=== PATIENT | male | born 1960 | race Hispanic/Latino ===

== ENCOUNTER 2023-08-19 16:47 | Emergency (ER) | payer BC ==
[~2023-08-19] VITALS: Ht 170.2 cm; Wt 79.4 kg
[2023-08-19 17:54] LABS: BASOPHILS # (AUTO) 0.06 K/uL (0.00-0.20); BASOPHILS % (AUTO) 0.8 % (0.0-5.0); EOSINOPHILS # (AUTO) 0.32 K/uL (0.00-0.70); EOSINOPHILS % (AUTO) 4.4 % (0.0-8.0); HEMATOCRIT 39.6 % (42-54); IMMATURE GRANULOCYTE ABSOLUTE 0.02 K/uL (0-1); LYMPHOCYTES # (AUTO) 2.4 K/uL (1.0-4.8); LYMPHOCYTES % (AUTO) 33.2 % (21.0-51.0); MEAN CORPUSCULAR HEMOGLOBIN 30.8 pg (27.0-33.0); MEAN CORPUSCULAR HGB CONC 34.3 g/dL (32.0-36.0); MEAN CORPUSCULAR VOLUME 89.8 fL (79-99); MONOCYTES # (AUTO) 0.6 K/uL (0.1-1.0); MONOCYTES % (AUTO) 7.7 % (3.0-13.0); NEUTROPHILS # (AUTO) 3.9 K/uL (1.8-7.7); NEUTROPHILS % (AUTO) 53.6 % (40.0-77.0); PLATELET COUNT (AUTO) 163 K/uL (130-400); RED BLOOD CELL COUNT(AUTO) 4.41 MIL/uL (4.50-6.20); RED CELL DISTRIBUTION WIDTH 14.1 % (11.0-15.5); WHITE BLOOD COUNT (AUTO) 7.3 K/uL (4.8-10.8)
[2023-08-19 18:12] LABS: CREATININE 0.9 mg/dL (0.5-1.3); POTASSIUM 4.4 mmol/L (3.5-5.1)
[2023-08-19 18:17] LABS: B-TYPE NATRIURETIC PEPTIDE 73 pg/mL (0-100)
[2023-08-19 18:21] LABS: ALBUMIN 3.6 g/dL (3.5-5.0); BILIRUBIN,TOTAL 0.3 mg/dL (0.2-1.0); TOTAL PROTEIN, SERUM 7.6 g/dL (6.0-8.3)
[2023-08-19] MEDS: ALBUTEROL 0.083% 2.5 MG/3 ML INH IH SCH (19:16)
[2023-08-19 19:19] VITALS: PULSE 57; RESP 20
[2023-08-19] MEDS: LEVOFLOXACIN 500 MG TABLET PO SCH (19:59)
[2023-08-19] MEDS ORDERED: ALBUHFA IH (20:33)
[2023-08-19] MEDS ORDERED: LEVO750T68 PO (20:33)
[2023-08-19 20:48] VITALS: BP 146/78; PULSE 60; RESP 18; O2SAT 97
== END 2023-08-19 21:04 | disposition home or self-care (01) ==
LOC: EDH 16:47
DX: J18.9 Pneumonia, unspecified organism (principal); R06.09 Other forms of dyspnea; Z20.822 Contact with and (suspected) exposure to COVID-19; Z79.899 Other long term (current) drug therapy
CPT/HCPCS: 36415; 71045; 80053; 83880; 84484; 85025; 87426; 93005; 94640